=== PATIENT | female | born 1995 | race American Indian/Alaskan Native ===

== ENCOUNTER 2019-03-10 07:51 | Emergency (ER) | payer BC, OTHER ==
[2019-03-10 08:30] LABS: ANION GAP 11.4; CHLORIDE,CL 105 mmol/L (101-111); SODIUM,NA 137 mmol/L (135-145)
--- NOTE | 2019-03-10 08:32 | EDM.PDOC ---
ED HPI GENERAL MEDICAL PROBLEM - General Stated Complaint: LOWER ABDOMINAL PAIN/BLEEDING/POSITIVE PREG 2 WEEK Time Seen by Provider: 03/10/19 08:24 Source of Information: Reports: Patient History Limitations: Reports: No Limitations - History of Present Illness INITIAL COMMENTS - FREE TEXT/NARRATIVE: This 23 yo female patient reports to the ED with lower abdominal pain/cramping and passing blood clots. The patient reports her last normal menstrual cycle was in the beginning of December. The patient reports she did take a home test that was positive. The patient has not been seen in the clinic. The patient reports she passed several large clots last night. The patient reports her abdominal pain comes and goes. The patient reports her pain has been a 3/10 at the worst. The patient denies any trauma or falls. This is the patient's first . Onset Date: 03/09/19 Duration: Intermittent Location: Reports: Abdomen (lower abdomen) Quality: Reports: Sharp Severity: Moderate Improves with: Reports: None Worsens with: Reports: None Context: Reports: Other Associated Symptoms: Reports: No Other Symptoms Treatments AIR VALVE REPAIRER: Reports: Acetaminophen Other Treatments AIR VALVE REPAIRER: Tylenol 1000mg po 1230 this morning. Lower Abdomen Pain Score (Numeric/FACES): 2 - Related Data Allergies Allergy/AdvReac Type Severity Reaction Status Date / Time No Known Allergies Allergy Verified 02/08/16 22:24 Home Meds: Home Meds Montelukast Sodium 10 mg PO DAILY 02/08/16 [History] Past Medical History HEENT History: Reports: Allergic Rhinitis Cardiovascular History: Reports: None Respiratory History: Reports: Asthma Gastrointestinal History: Reports: None Genitourinary History: Reports: None PRECAST MOLDER History: Reports: Musculoskeletal History: Reports: None Neurological History: Reports: None Psychiatric History: Reports: None Endocrine/Metabolic History: Reports: None Hematologic History: Reports: None Immunologic History: Reports: None Oncologic (Cancer) History: Reports: None Dermatologic History: Reports: Eczema - Infectious Disease History Infectious Disease History: Reports: Chicken Pox - Past Surgical History Head Surgeries/Procedures: Reports: None HEENT Surgical History: Reports: None Cardiovascular Surgical History: Reports: None Respiratory Surgical History: Reports: None GI Surgical History: Reports: None Female Surgical History: Reports: None Endocrine Surgical History: Reports: None Neurological Surgical History: Reports: None Musculoskeletal Surgical History: Reports: None Oncologic Surgical History: Reports: None Dermatological Surgical History: Reports: None Social & Family History - Family History Family Medical History: Noncontributory - Tobacco Use Smoking Status *Q: Never Smoker - Caffeine Use Caffeine Use: Reports: Tea - Recreational Drug Use Recreational Drug Use: No ED ROS GENERAL - Review of Systems Review Of Systems: Comprehensive ROS is negative, except as noted in HPI. ED EXAM, GI/ABD - Physical Exam Exam: See Below Exam Limited By: No Limitations General Appearance: Alert, WD/WN, Moderate Distress Eyes: Bilateral: Normal Appearance, EOMI Ears: Normal External Exam, Normal Canal, Hearing Grossly Normal, Normal TMs Nose: Normal Inspection, Normal Mucosa, No Blood Throat/Mouth: Normal Inspection, Normal Lips, Normal Teeth, Normal Gums, Normal Oropharynx, Normal Voice, No Airway Compromise Head: Atraumatic, Normocephalic Neck: Normal Inspection, Supple, Non-Tender, Full Range of Motion Respiratory/Chest: No Respiratory Distress, Lungs Clear, Normal Breath Sounds, No Accessory Muscle Use, Chest Non-Tender Cardiovascular: Normal Peripheral Pulses, Regular Rate, Rhythm, No Edema, No Gallop, No JVD, No Murmur, No Rub GI/Abdominal Exam: Normal Bowel Sounds, Soft, No Organomegaly, No Distention, No Abnormal Bruit, No Mass, Pelvis Stable, Tender (lower abdomen) (Female) Exam: Deferred Rectal (Female) Exam: Deferred Back Exam: Normal Inspection, Full Range of Motion, NT Extremities: Normal Inspection, Normal Range of Motion, Non-Tender, Normal Capillary Refill, No Pedal Edema Neurological: Alert, Oriented, CN II-XII Intact, Normal Cognition, Normal Gait, Normal Reflexes, No Motor/Sensory Deficits Psychiatric: Normal Affect, Normal Mood Skin Exam: Warm, Dry, Intact, Normal Color, No Rash Lymphatic: No Adenopathy Course - Vital Signs Last Recorded V/S: Last Vital Signs Temp 36.6 C 03/10/19 08:01 Pulse 86 03/10/19 08:01 Resp 18 03/10/19 08:01 BP 137/76 03/10/19 08:01 Pulse Ox 100 03/10/19 08:01 - Orders/Labs/Meds Orders: Active Orders 24 hr Category Date Time Status CULTURE URINE [RM] Stat Lab 03/10/19 08:21 Received RH IMMUNE GLOBULIN [BBK] Stat Lab 03/10/19 08:04 Results RHIG WORKUP, MISCARRIAGE [BBK] Stat Lab 03/10/19 08:04 Results Labs: Laboratory Tests 03/10/19 03/10/19 03/10/19 Range/Units 08:04 08:04 08:04 WBC 11.3 H (5.0-10.0) 10^3/uL RBC 4.59 (4.2-5.4) 10^6/uL Hgb 14.1 (12.0-16.0) g/dL Hct 40.3 (37.0-47.0) % MCV 87.8 (80-100) fL MCH 30.7 (27.0-34.0) pg MCHC 35.0 (33.0-35.0) g/dL Plt Count 255 (150-450) 10^3/uL Neut % (Auto) 71.1 (42.2-75.2) % Lymph % (Auto) 17.7 L (20.5-50.1) % [place] % (Auto) 5.9 (2-8) % Eos % (Auto) 5.0 H (1.0-3.0) % Baso % (Auto) 0.3 (0.0-1.0) % Sodium 137 (135-145) mmol/L Potassium 3.4 L (3.6-5.0) mmol/L Chloride 105 (101-111) mmol/L Carbon Dioxide 24.0 (21.0-31.0) mmol/L Anion Gap 11.4 BUN 9 (7-18) mg/dL Creatinine 0.7 (0.6-1.3) mg/dL Est Cr Clr Drug Dosing 111.51 mL/min Estimated GFR (MDRD) > 60 BUN/Creatinine Ratio 12.85 Glucose 102 (74-105) mg/dL Calcium 8.9 (8.4-10.2) mg/dl Total Bilirubin 0.6 (0.2-1.0) mg/dL AST 17 (10-42) IU/L ALT 18 (10-60) IU/L Alkaline Phosphatase 52 (42-121) IU/L Total Protein 7.3 (6.7-8.2) g/dl Albumin 3.9 (3.2-5.5) g/dl Globulin 3.4 Albumin/Globulin Ratio 1.15 HCG, Quant 1150 H (0-25) mIU/ml Beta HCG, Quant TNP Urine Color (YELLOW) Urine Appearance (CLEAR) Urine pH (5.0-9.0) Ur Specific [place] (1.005-1.030) Urine Protein (NEGATIVE) Urine Glucose (UA) (NEGATIVE) Urine Ketones (NEGATIVE) Urine Occult Blood (NEGATIVE) Urine Nitrite (NEGATIVE) Urine Bilirubin (NEGATIVE) Urine Urobilinogen (0.2-1.0) mg/dL Ur Leukocyte Esterase (NEGATIVE) Urine RBC /HPF Urine WBC (0-5/HPF) /HPF Ur Epithelial Cells (NOT SEEN) /HPF Amorphous Sediment (NOT SEEN) /HPF Urine Bacteria (0-FEW/HPF) /HPF Urine Mucus (NOT SEEN) /LPF Urine Opiates Screen (NEGATIVE) Ur Oxycodone Screen (NEGATIVE) Urine Methadone Screen (NEGATIVE) Ur Barbiturates Screen (NEGATIVE) U Tricyclic Antidepress (NEGATIVE) Ur Phencyclidine Scrn (NEGATIVE) Ur Amphetamine Screen (NEGATIVE) U Methamphetamines Scrn (NEGATIVE) Urine MDMA Screen (NEGATIVE) U Benzodiazepines Scrn (NEGATIVE) Urine Cocaine Screen (NEGATIVE) U Marijuana (THC) Screen (NEGATIVE) Blood Type (Referred) Rhogam Indicated Blood Bank Comment 03/10/19 03/10/19 03/10/19 Range/Units 08:04 08:21 08:21 WBC (5.0-10.0) 10^3/uL RBC (4.2-5.4) 10^6/uL Hgb (12.0-16.0) g/dL Hct (37.0-47.0) % MCV (80-100) fL MCH (27.0-34.0) pg MCHC (33.0-35.0) g/dL Plt Count (150-450) 10^3/uL Neut % (Auto) (42.2-75.2) % Lymph % (Auto) (20.5-50.1) % [place] % (Auto) (2-8) % Eos % (Auto) (1.0-3.0) % Baso % (Auto) (0.0-1.0) % Sodium (135-145) mmol/L Potassium (3.6-5.0) mmol/L Chloride (101-111) mmol/L Carbon Dioxide (21.0-31.0) mmol/L Anion Gap BUN (7-18) mg/dL Creatinine (0.6-1.3) mg/dL Est Cr Clr Drug Dosing mL/min Estimated GFR (MDRD) BUN/Creatinine Ratio Glucose (74-105) mg/dL Calcium (8.4-10.2) mg/dl Total Bilirubin (0.2-1.0) mg/dL AST (10-42) IU/L ALT (10-60) IU/L Alkaline Phosphatase (42-121) IU/L Total Protein (6.7-8.2) g/dl Albumin (3.2-5.5) g/dl Globulin Albumin/Globulin Ratio HCG, Quant (0-25) mIU/ml Beta HCG, Quant Urine Color Red (YELLOW) Urine Appearance Turbid (CLEAR) Urine pH 6.0 (5.0-9.0) Ur Specific [place] >= 1.030 (1.005-1.030) Urine Protein 100 H (NEGATIVE) Urine Glucose (UA) Negative (NEGATIVE) Urine Ketones Trace H (NEGATIVE) Urine Occult Blood Large H (NEGATIVE) Urine Nitrite Positive H (NEGATIVE) Urine Bilirubin Small H (NEGATIVE) Urine Urobilinogen 1.0 (0.2-1.0) mg/dL Ur Leukocyte Esterase Trace H (NEGATIVE) Urine RBC >100 H /HPF Urine WBC 20-30 H (0-5/HPF) /HPF Ur Epithelial Cells Moderate H (NOT SEEN) /HPF Amorphous Sediment Moderate H (NOT SEEN) /HPF Urine Bacteria Moderate H (0-FEW/HPF) /HPF Urine Mucus Few H (NOT SEEN) /LPF Urine Opiates Screen Negative (NEGATIVE) Ur Oxycodone Screen Negative (NEGATIVE) Urine Methadone Screen Negative (NEGATIVE) Ur Barbiturates Screen Negative (NEGATIVE) U Tricyclic Antidepress Negative (NEGATIVE) Ur Phencyclidine Scrn Negative (NEGATIVE) Ur Amphetamine Screen Negative (NEGATIVE) U Methamphetamines Scrn Negative (NEGATIVE) Urine MDMA Screen Negative (NEGATIVE) U Benzodiazepines Scrn Negative (NEGATIVE) Urine Cocaine Screen Negative (NEGATIVE) U Marijuana (THC) Screen Positive H (NEGATIVE) Blood Type (Referred) O neg Rhogam Indicated Yes Blood Bank Comment [facility]queda benedicto Departure - Departure Time of Disposition: 11:22 Disposition: Home, Self-Care 01 Condition: Fair Clinical Impression: Missed - Discharge Information *PRESCRIPTION DRUG MONITORING PROGRAM REVIEWED*: Not Applicable *COPY OF PRESCRIPTION DRUG MONITORING REPORT IN PATIENT DULCE: Not Applicable Instructions: Miscarriage Forms: ED Department Discharge Care Plan Goals: The patient was advised of the examination, lab and ultrasound results during the visit. The patient was given an injection of RhoGAM while in the ED. The patient was encouraged to follow-up with an PRECAST MOLDER for continued evaluation and management. If the patient has any additional symptoms or concerns, the patient should either return to the emergency department or visit her primary care facility. Sepsis Event Note - Evaluation Sepsis Screening Result: No Definite Risk - Focused Exam Vital Signs: Vital Signs Temp Pulse Resp BP Pulse Ox 03/10/19 08:01 36.6 C 86 18 137/76 100 Date Exam was Performed: 03/10/19 Time Exam was Performed: 11:22 - My Orders Last 24 Hours: My Active Orders 03/10/19 08:04 RH IMMUNE GLOBULIN [BBK] Stat RHIG WORKUP, MISCARRIAGE [BBK] Stat 03/10/19 08:21 CULTURE URINE [RM] Stat - Assessment/Plan Last 24 Hours: My Active Orders 03/10/19 08:04 RH IMMUNE GLOBULIN [BBK] Stat RHIG WORKUP, MISCARRIAGE [BBK] Stat 03/10/19 08:21 CULTURE URINE [RM] Stat
[2019-03-10 11:43] VITALS: BP 129/71; PULSE 77
== END 2019-03-10 11:50 | disposition home or self-care (01) ==
LOC: DL.ED 07:51
DX: O02.1 Missed abortion (principal); J45.909 Unspecified asthma, uncomplicated; Z79.899 Other long term (current) drug therapy
CPT/HCPCS: 36415; 76815; 76817; 80053; 80305-QW; 81001; 84702; 85025; 87086; 99284-25; J2790

== ENCOUNTER 2019-03-10 14:30 | Emergency (ER) | payer BC, OTHER ==
[2019-03-10 14:45] VITALS: BP 130/58; PULSE 81
--- NOTE | 2019-03-10 14:55 | EDM.PDOC ---
ED HPI GENERAL MEDICAL PROBLEM - General Chief Complaint: SKIN THERAPIST Problem Stated Complaint: UNKNOWN-AMBULANCE Time Seen by Provider: 03/10/19 14:30 Source of Information: Reports: Patient History Limitations: Reports: No Limitations - History of Present Illness INITIAL COMMENTS - FREE TEXT/NARRATIVE: This 23 yo female patient was brought to the ED by [facility] due to vaginal bleeding. The patient was seen here earlier today and diagnosed with a missed . The patient went to [facility] after being discharged from the emergency department. The patient reports increased lower abdominal cramping. The patient reports she passes some large clots in the [facility] bathroom. The patient reports she had weakness in her legs after passing the clots. The patient required assistance from EMS to stand up. Onset Date: 03/09/19 Duration: Constant Location: Reports: Abdomen Quality: Reports: Other Severity: Moderate Improves with: Reports: None Worsens with: Reports: None Context: Reports: Other - Related Data Allergies Allergy/AdvReac Type Severity Reaction Status Date / Time No Known Allergies Allergy Verified 02/08/16 22:24 Home Meds: Home Meds Montelukast Sodium 10 mg PO DAILY 02/08/16 [History] Past Medical History HEENT History: Reports: Allergic Rhinitis Cardiovascular History: Reports: None Respiratory History: Reports: Asthma Gastrointestinal History: Reports: None Genitourinary History: Reports: None SKIN THERAPIST History: Reports: Musculoskeletal History: Reports: None Neurological History: Reports: None Psychiatric History: Reports: None Endocrine/Metabolic History: Reports: None Hematologic History: Reports: None Immunologic History: Reports: None Oncologic (Cancer) History: Reports: None Dermatologic History: Reports: Eczema - Infectious Disease History Infectious Disease History: Reports: Chicken Pox - Past Surgical History Head Surgeries/Procedures: Reports: None HEENT Surgical History: Reports: None Cardiovascular Surgical History: Reports: None Respiratory Surgical History: Reports: None GI Surgical History: Reports: None Female Surgical History: Reports: None Endocrine Surgical History: Reports: None Neurological Surgical History: Reports: None Musculoskeletal Surgical History: Reports: None Oncologic Surgical History: Reports: None Dermatological Surgical History: Reports: None Social & Family History - Family History Family Medical History: Noncontributory - Caffeine Use Caffeine Use: Reports: Tea ED ROS GENERAL - Review of Systems Review Of Systems: Comprehensive ROS is negative, except as noted in HPI. ED EXAM - Physical Exam Exam: See Below Exam Limited By: No Limitations General Appearance: Alert, WD/WN, Moderate Distress Eye Exam: Bilateral Eye: EOMI, Normal Inspection, PERRL Ears: Normal External Exam, Normal Canal, Hearing Grossly Normal, Normal TMs Nose: Normal Inspection, Normal Mucosa, No Blood Throat/Mouth: Normal Inspection, Normal Lips, Normal Teeth, Normal Gums, Normal Oropharynx, Normal Voice, No Airway Compromise Head: Atraumatic, Normocephalic Neck: Normal Inspection, Supple, Non-Tender, Full Range of Motion Respiratory/Chest: No Respiratory Distress, Lungs Clear, Normal Breath Sounds, No Accessory Muscle Use, Chest Non-Tender Cardiovascular: Normal Peripheral Pulses, Regular Rate, Rhythm, No Edema, No Gallop, No JVD, No Murmur, No Rub GI/Abdominal Exam: Normal Bowel Sounds, Soft, Tender (lower abdominal cramping) Rectal Exam: Deferred Back Exam: Normal Inspection, Full Range of Motion, NT Extremities: Normal Inspection, Normal Range of Motion, Non-Tender, Normal Capillary Refill, No Pedal Edema Neurological: Alert, Oriented, CN II-XII Intact, Normal Cognition, Normal Gait, Normal Reflexes, No Motor/Sensory Deficits Psychiatric: Normal Affect, Normal Mood Skin Exam: Warm, Dry, Intact, Normal Color, No Rash Lymphatic: No Adenopathy Course - Vital Signs Last Recorded V/S: Last Vital Signs Temp 36.3 C 03/10/19 14:22 Pulse 81 03/10/19 14:22 Resp 20 03/10/19 14:22 BP 130/58 L 03/10/19 14:22 Pulse Ox 96 03/10/19 14:22 - Orders/Labs/Meds Labs: Laboratory Tests 03/10/19 Range/Units 14:47 WBC 15.2 H (5.0-10.0) 10^3/uL RBC 4.29 (4.2-5.4) 10^6/uL Hgb 13.2 (12.0-16.0) g/dL Hct 37.8 (37.0-47.0) % MCV 88.1 (80-100) fL MCH 30.8 (27.0-34.0) pg MCHC 34.9 (33.0-35.0) g/dL Plt Count 255 (150-450) 10^3/uL Neut % (Auto) 86.6 H (42.2-75.2) % Lymph % (Auto) 7.0 L (20.5-50.1) % [place] % (Auto) 5.0 (2-8) % Eos % (Auto) 1.3 (1.0-3.0) % Baso % (Auto) 0.1 (0.0-1.0) % Meds: Medications Discontinued Medications Generic Name Dose Route Start Last Admin Trade Name Lawrence PRN Reason Stop Dose Admin Acetaminophen 650 mg 03/10/19 15:19 Tylenol PO 03/10/19 15:20 NOW ONE Ciprofloxacin 500 mg 03/10/19 15:19 Ciprofloxacin Hcl PO 03/10/19 15:20 ONETIME ONE - Re-Assessments/Exams Free Text/Narrative Re-Assessment/Exam: 03/10/19 15:[address] Guzman regarding the patient. Dr. Guzman advised to encourage the patient to rest and relax. The patient should follow-up with OB/ SUPPORT ASSOCIATE in the next week. Departure - Departure Time of Disposition: 15:21 Disposition: Home, Self-Care 01 Condition: Fair Clinical Impression: Missed UTI (urinary tract infection) Qualifiers: Urinary tract infection type: site unspecified Hematuria presence: with hematuria Qualified Code(s): N39.0 - Urinary tract infection, site not specified ; R31.9 - Hematuria, unspecified - Discharge Information *PRESCRIPTION DRUG MONITORING PROGRAM REVIEWED*: Not Applicable *COPY OF PRESCRIPTION DRUG MONITORING REPORT IN PATIENT DULCE: Not Applicable Instructions: Urinary Tract Infection, Adult, [id number] Forms: ED Department Discharge Care Plan Goals: The patient was advised of the examination, lab and consult results with the patient and her family. The patient was given an oral dose of Tylenol and Cipro while the patient was in the ED. The patient was discharged with a script for Cipro (500 mg) to take 1 by mouth 2 days per week for 5 days. The patient was encouraged to REST and increase her oral fluid intake. If the patient has any additional symptoms or concerns, the patient should either return to the emergency department or visit her primary care facility. Sepsis Event Note - Evaluation Sepsis Screening Result: No Definite Risk - Focused Exam Vital Signs: Vital Signs Temp Pulse Resp BP Pulse Ox 03/10/19 14:22 36.3 C 81 20 130/58 L 96 Date Exam was Performed: 03/10/19 Time Exam was Performed: 15:20
[2019-03-10] MEDS ORDERED: Ciprofloxacin 500 MG Tab PO ONE (15:19)
[2019-03-10] MEDS ORDERED: Acetaminophen 325 MG Tab PO ONE (15:19)
== END 2019-03-10 15:44 | disposition home or self-care (01) ==
LOC: DL.ED 14:30
DX: O03.9 Complete or unspecified spontaneous abortion without complication (principal); Z79.899 Other long term (current) drug therapy
CPT/HCPCS: 36415; 85025; 99284; A9270

== ENCOUNTER 2022-05-01 11:59 | Observation (INO) | payer BC, MEDICAID, OTHER ==
[2022-05-01] MEDS ORDERED: Sodium Chloride 0.9% 10 ML Syringe FLUSH PRN (12:09)
[2022-05-01] MEDS ORDERED: Ondansetron 4 MG/2 ML SDV IV ONE (13:21)
[2022-05-01] MEDS ORDERED: Potassium Chloride 10 MEQ Tab.ER PO ONE (13:21)
[2022-05-01] MEDS ORDERED: 50% Dextrose in Water 50 ML Syringe IVPUSH PRN ×4 (13:22→17:56)
[2022-05-01] MEDS ORDERED: Glucagon,Human Recombinant 1 MG Vial IM PRN ×4 (13:22→17:56)
[2022-05-01] MEDS ORDERED: NS with KCl 40mEq 1,000 ML IV SCH (13:30)
[2022-05-01 14:00] LABS: BASE EXCESS VENOUS 8.1 mmol/l ((-2)-(+3)); BICARBONATE,VENOUS 34 mmol/l (19-25); O2 DELIVERY DEVICE ROOM AIR; O2 SATURATION VENOUS 22.8 % (60-80); PCO2 VENOUS 55 mmHg (41-51); PH,VENOUS 7.42 (7.31-7.41); PO2 VENOUS 19 mmHg (35-42)
[2022-05-01] MEDS ORDERED: Ondansetron 4 MG/2 ML SDV IVPUSH PRN (14:57)
[2022-05-01] MEDS ORDERED: Acetaminophen 325 MG Tab PO PRN (14:57)
[2022-05-01] MEDS ORDERED: Docusate Sodium 100 MG Cap PO PRN (14:57)
[2022-05-01 15:07] LABS: HEMOGLOBIN A1C > 14.0 % (<5.7)
[2022-05-01] MEDS: Insulin Glarg,Human.Rec.Analog 100 Unit/ML SUBCUT SCH (15:50)
[2022-05-01] MEDS: Insulin Lispro 100 Units/ML 3 ML Vial SUBCUT SCH ×3 (16:48→21:00)
[2022-05-01] MEDS ORDERED: Insulin Lispro 100 Units/ML 3 ML Vial SUBCUT ONE (17:56)
[2022-05-01] MEDS: Potassium Chloride 10 MEQ Tab.ER PO SCH (21:35)
[2022-05-02 06:57] LABS: ANION GAP 14.4 mEq/L (7-13)
[2022-05-02] MEDS: Insulin Lispro 100 Units/ML 3 ML Vial SUBCUT SCH ×4 (08:15→20:14)
[2022-05-02] MEDS ORDERED: 50% Dextrose in Water 50 ML Syringe IVPUSH PRN ×2 (08:16→08:17)
[2022-05-02] MEDS ORDERED: Glucagon,Human Recombinant 1 MG Vial IM PRN ×2 (08:16→08:17)
[2022-05-02] MEDS: Insulin Glarg,Human.Rec.Analog 100 Unit/ML SUBCUT SCH (08:17)
[2022-05-02] MEDS: Enoxaparin 40 MG/0.4 ML Syringe SUBCUT SCH (08:18)
[2022-05-02] MEDS ORDERED: Potassium Chloride 10 MEQ Tab.ER PO ONE ×2 (08:30→12:30)
[2022-05-02] MEDS ORDERED: Insulin Glarg,Human.Rec.Analog 100 Unit/ML SUBCUT SCH (09:00)
[2022-05-02] MEDS ORDERED: Albuterol 6.7 GM Inhaler INH PRN (09:49)
[2022-05-02 11:59] LABS: ANION GAP 15.9 mEq/L (7-13)
[2022-05-02] MEDS ORDERED: Potassium Chloride 10 MEQ Tab.ER PO SCH (18:00)
[2022-05-02] MEDS: Potassium Chloride 10 MEQ Tab.ER PO SCH (20:12)
[2022-05-03] MEDS ORDERED: 50% Dextrose in Water 50 ML Syringe IVPUSH PRN (06:57)
[2022-05-03] MEDS ORDERED: Glucagon,Human Recombinant 1 MG Vial IM PRN (06:57)
[2022-05-03 07:46] VITALS: BP 112/67; PULSE 77
[2022-05-03] MEDS: Insulin Lispro 100 Units/ML 3 ML Vial SUBCUT SCH (08:18)
[2022-05-03] MEDS: Enoxaparin 40 MG/0.4 ML Syringe SUBCUT SCH (08:31)
[2022-05-03 08:43] LABS: ANION GAP 12.7 mEq/L (7-13)
[2022-05-03] MEDS ORDERED: Insulin Glarg,Human.Rec.Analog 100 Unit/ML SUBCUT SCH (09:00)
[2022-05-03] MEDS ORDERED: Potassium Chloride 10 MEQ Tab.ER PO ONE (10:10)
== END 2022-05-03 10:45 | disposition home or self-care (01) ==
LOC: DL.ED 11:59 → DL.MS 14:14 → DL.ED 14:28
PROVIDERS: ADMIT Internal Medicine; ATTEND Internal Medicine
DX: E11.65 Type 2 diabetes mellitus with hyperglycemia (principal); E11.10 Type 2 diabetes mellitus with ketoacidosis without coma; E87.6 Hypokalemia; I10 Essential (primary) hypertension; Z79.4 Long term (current) use of insulin
CPT/HCPCS: 36415; 80048; 80053; 81001; 81025; 82009; 82803; 82947; 83036; 83735; 85025; 87086; 96365; 96372; 96375; 99223; 99238; 99284; 99285; A9270; G0378; J1650; J1815; J2405; J3480

== ENCOUNTER 2023-08-23 00:14 | Observation (INO) | payer MEDICAID ==
[~2023-08-23 00:14] MED LIST: Carboprost Tromethamine 250 MCG/1 ML Amp IM PRN; Methylergonovine 0.2 MG/1 ML Amp IM PRN; Misoprostol 400 MCG (4 X 100 MCG TAB) RECTAL PRN; Ondansetron 4 MG/2 ML SDV IVPUSH PRN; Sodium Chloride 0.9% 10 ML Syringe FLUSH PRN; Tranexamic Acid 1,000 MG in Sodium Chloride 0.9% 100 ML IV PRN
[2023-08-23 00:58] LABS: HEMATOCRIT 35.4 % (37.0-47.0); MEAN CORPUSCULAR HEMOGLOBIN 29.9 pg (27.0-34.0); MEAN CORPUSCULAR HGB CONC 33.9 g/dL (33.0-35.0); MEAN CORPUSCULAR VOLUME 88.3 fL (80-100); RED BLOOD CELL COUNT 4.01 10^6/uL (4.2-5.4)
[2023-08-23] MEDS: Misoprostol 50 MCG (1/2 of 100 MCG) Tab VAG SCH (00:59)
[2023-08-23 01:19] LABS: ALANINE AMINOTRANSFERASE,ALT 15 U/L (14-59); ASPARTATE AMNIOTRANSFERASE,AST 10 U/L (15-37); BLOOD UREA NITROGEN,BUN 14 mg/dL (7-18); CREATININE 0.74 mg/dL (0.55-1.02); LACTATE DEHYDROGENASE,LDH 122 U/L (81-234); URIC ACID 4.3 mg/dL (2.6-6.0)
[2023-08-23 01:20] LABS: ESTIMATED GFR 113 mL/min (>=60)
[2023-08-23 03:07] LABS: APPEARANCE,URINE CLEAR (CLEAR); BILIRUBIN,URINE NEGATIVE (NEGATIVE); COLOR,URINE YELLOW (YELLOW); GLUCOSE,URINE NEGATIVE (NEGATIVE); KETONES,URINE NEGATIVE (NEGATIVE); LEUKOCYTE ESTERASE,URINE NEGATIVE (NEGATIVE); NITRITE,URINE NEGATIVE (NEGATIVE); OCCULT BLOOD,URINE NEGATIVE (NEGATIVE); PROTEIN,URINE NEGATIVE (NEGATIVE); UROBILINOGEN,URINE 0.2 mg/dL (0.2-1.0)
[2023-08-23 03:19] LABS: CREATININE,URINE RAND 94.68 mg/dL (No establ ref range); PROTEIN CREATININE RATIO,URINE 161.6 mg/g (<150.0); PROTEIN,URINE RANDOM 15.3 mg/dL (0.0-11.9)
[2023-08-23] MEDS: Misoprostol 25 MCG (1/4 of 100 MCG) Tab VAG PRN (07:32)
[2023-08-23] MEDS: Acetaminophen 325 MG Tab PO PRN (08:15)
[2023-08-23] MEDS: Penicillin G Potassium 5 MILLUNITS in Sodium Chloride 0.9% 100 ML IV ONE (13:52)
[2023-08-23] MEDS: hydrOXYzine HCl 25 MG Tab PO PRN (14:14)
[2023-08-23] MEDS: Lactated Ringers 1,000 ML IV SCH (14:15)
[2023-08-23] MEDS: fentaNYL 100 MCG/2 ML SDV IVPUSH PRN (18:16)
[2023-08-23] MEDS: Penicillin G Potassium 3 MILLUNITS in Sodium Chloride 0.9% 100 ML IV SCH ×2 (18:18→23:26)
[2023-08-23] MEDS ORDERED: fentaNYL 100 MCG/2 ML SDV ONE (20:05)
[2023-08-23] MEDS ORDERED: Bupivacaine 0.25% 10 ML SDV ONE (20:05)
[2023-08-23] MEDS ORDERED: ePHEDrine 50 MG/ML SDV IVPUSH PRN (20:28)
[2023-08-23] MEDS ORDERED: Phenylephrine HCl In 0.9% NaCl 1 MG/10 ML Syringe IVPUSH PRN (20:28)
[2023-08-23] MEDS ORDERED: Ropivacaine 200 MG in Premix Bag 1 BAG EPIDUR SCH (20:30)
[2023-08-23] MEDS: Oxytocin/Normal Saline 30 UNIT/500 ML BAG IV SCH (21:14)
[2023-08-24] MEDS ORDERED: Acetaminophen/oxyCODONE 325-5 MG Tab PO PRN (06:09)
[2023-08-24] MEDS ORDERED: ePHEDrine 50 MG/ML SDV IVPUSH PRN (06:09)
[2023-08-24] MEDS ORDERED: diphenhydrAMINE 50 MG/ML SDV IVPUSH PRN (06:09)
[2023-08-24] MEDS ORDERED: Naloxone 2 MG/2 ML Syringe IVPUSH PRN (06:09)
[2023-08-24] MEDS ORDERED: Oxytocin/Normal Saline 30 UNIT/500 ML BAG IV SCH (06:15)
[2023-08-24] MEDS ORDERED: Lactated Ringers 1,000 ML IV SCH (06:15)
[2023-08-24] MEDS ORDERED: Ondansetron 4 MG/2 ML SDV ONE (06:23)
[2023-08-24] MEDS ORDERED: Oxytocin 10 Units/1 ML SDV ONE (06:23)
[2023-08-24] MEDS ORDERED: Dexamethasone 4 MG/ML SDV ONE (06:23)
[2023-08-24] MEDS ORDERED: Phenylephrine 1% 10 MG/ML SDV ONE (06:23)
[2023-08-24] MEDS ORDERED: ceFAZolin 2 GM Vial ONE (06:23)
[2023-08-24] MEDS ORDERED: Lidocaine 2% with EPINEPHrine 1:200,000 20 ML SDV ONE (06:24)
[2023-08-24] MEDS ORDERED: Succinylcholine 200 MG/10 ML MDV ONE (06:24)
[2023-08-24] MEDS: Lactated Ringers 1,000 ML IV ONE (09:33)
[2023-08-24] MEDS: Lidocaine 1% 30 ML SDV INJECT ONE (10:56)
[2023-08-24] MEDS: Ketorolac 30 MG/ML SDV IVPUSH SCH ×2 (11:13→12:51)
[2023-08-24] MEDS: Prenatal Multivitamin with Calcium/Folic Acid/Iron Tab PO SCH (11:18)
[2023-08-24] MEDS: Simethicone 80 MG Tab.Chew PO SCH (11:18)
[2023-08-24] MEDS: ceFAZolin 2 GM Vial IVPUSH ONE (13:55)
[2023-08-24] MEDS: Docusate Sodium 100 MG Cap PO PRN (20:21)
[2023-08-25 05:54] LABS: HEMATOCRIT 31.9 % (37.0-47.0); HEMOGLOBIN 10.6 g/dL (12.0-16.0); MEAN CORPUSCULAR HEMOGLOBIN 29.7 pg (27.0-34.0); MEAN CORPUSCULAR HGB CONC 33.2 g/dL (33.0-35.0); MEAN CORPUSCULAR VOLUME 89.4 fL (80-100); RED BLOOD CELL COUNT 3.57 10^6/uL (4.2-5.4); WHITE BLOOD CELL COUNT,WBC 15.1 10^3/uL (5.0-10.0)
[2023-08-25] MEDS: Acetaminophen/oxyCODONE 325-5 MG Tab PO PRN (08:30)
[2023-08-25] MEDS: Ibuprofen 800 MG Tab PO PRN (12:45)
[2023-08-26] MEDS: Measles, Mumps & Rubella Vaccine 0.5 ML SDV SUBCUT ONE (12:34)
[2023-08-26 13:47] VITALS: BP 122/68; PULSE 66
== END 2023-08-26 13:20 | disposition home or self-care (01) ==
LOC: DL.OB 00:14
PROVIDERS: ADMIT Family Medicine; ATTEND Family Medicine
DX: O62.0 Primary inadequate contractions (principal); O24.92 Unspecified diabetes mellitus in childbirth; O10.92 Unspecified pre-existing hypertension complicating childbirth; O98.82 Other maternal infectious and parasitic diseases complicating childbirth; O36.8330 Maternal care for abnormalities of the fetal heart rate or rhythm, third trimester, not applicable or unspecified; B95.1 Streptococcus, group B, as the cause of diseases classified elsewhere; B06.9 Rubella without complication; J45.40 Moderate persistent asthma, uncomplicated; Z67.91 Unspecified blood type, Rh negative; Z3A.39 39 weeks gestation of pregnancy; Z37.0 Single live birth; Z79.4 Long term (current) use of insulin
CPT/HCPCS: 36415; 51702; 59025; 59514; 81003; 82565; 82570; 82947; 83615; 84156; 84450; 84460; 84520; 84550; 85027; 85461; 86850; 86870; 86900; 86901; 90384; 90471; 90707; A9270; J0330; J1885; J2540; J2590; J3010; J3490; J7120; J2790